=== PATIENT | male | born 1985 | race Caucasian/White ===

== ENCOUNTER 2018-12-14 22:55 | Emergency (ER) | payer BC, OTHER ==
[~2018-12-14] VITALS: Ht 180.3 cm; Wt 85.9 kg
[2018-12-14 22:57] VITALS: BP 111/72; PULSE 88; RESP 18; Ht 180.3 cm; Wt 85.9 kg
[2018-12-15] MEDS ORDERED: LIDOCAINE/MYLANTA 40 ML BTL PO STA (00:29)
[2018-12-15] MEDS ORDERED: SOD CHLORIDE 0.9% 1,000 ML IV STA (00:29)
[2018-12-15] MEDS ORDERED: ONDANSETRON 4 MG INJ IV STA ×2 (00:29→01:40)
[2018-12-15] MEDS ORDERED: ONDA4TAB14 PO (01:39)
[2018-12-15] MEDS ORDERED: FAMO-96 PO (01:39)
--- NOTE | 2018-12-15 04:13 | ERD ---
ER Documentation Chief Complaint Chief Complaint BIBRA fro home,epigastric burning pain,NV,diarrhea started today HPI This is a 33-year-old male presents with sudden onset epigastric abdominal pain associated with nausea, vomiting, diarrhea times today. Patient states he is unable to tolerate food at home. He reports multiple episodes of nonbloody, nonbloody emesis. Denies any blood in his stools as well. He denies any fevers . He states his epigastric pain is burning and radiates towards his esophagus. Denies any associated chest pain, palpitations, shortness of breath, or any other symptoms. Patient states his has similar symptoms a few days earlier. ROS All systems reviewed and are negative except as per history of present illness. Medications Home Meds Active Scripts Famotidine* (Pepcid*) 20 Mg Tablet, 20 MG PO BID for 4 Days, TAB Prov:REJI HILLMAN-C 12/15/18 Ondansetron (Ondansetron Odt) 4 Mg Tab.rapdis, 4 MG PO Q6H PRN for NAUSEA AND/OR VOMITING, #10 TAB Prov:REJI HILLMAN-C 12/15/18 Allergies Allergies: Coded Allergies: No Known Allergy (Unverified , 12/14/18) PMhx/Soc Medical and Surgical Hx: pt denies Medical Hx, pt denies Surgical Hx Hx Alcohol Use: Yes Hx Substance Use: No Hx Tobacco Use: Yes Smoking Status: Current some day smoker Physical Exam Vitals Vital Signs Date Temp Pulse Resp B/P (MAP) Pulse Ox O2 O2 Flow FiO2 Time Delivery Rate 12/14/18 97.1 88 18 111/72 98 22:57 (85) Physical Exam Const: No acute distress. Patient lying comfortably in rney. Head: Atraumatic Eyes: Normal Conjunctiva ENT: Normal External Ears, Nose and Mouth. Neck: Full range of motion. No meningismus. Resp: Clear to auscultation bilaterally Cardio: Regular rate and rhythm, no murmurs Abd: Soft, + mild epigastric tenderness to palpation. Negative Catalan sign. Negative McBurney's tenderness to palpation. No rebound no guarding. No distention. Bowel sounds active in all 4 quadrants. Skin: No petechiae or rashes Back: No midline or flank tenderness Ext: No cyanosis, or edema Neur: Awake and alert Psych: Normal Mood and Affect Result Diagram: 12/15/18 0055 12/15/18 0055 Results 24 hrs Laboratory Tests Test 12/15/18 00:55 White Blood Count 18.1 10^3/ul Red Blood Count 5.64 10^6/ul Hemoglobin 17.1 g/dl Hematocrit 49.6 % Mean Corpuscular Volume 87.9 fl Mean Corpuscular Hemoglobin 30.3 pg Mean Corpuscular Hemoglobin Concent 34.5 g/dl Red Cell Distribution Width 12.3 % Platelet Count 242 10^3/UL Mean Platelet Volume 10.4 fl Immature Granulocytes % 0.600 % Neutrophils % 87.7 % Lymphocytes % 3.8 % Monocytes % 7.2 % Eosinophils % 0.3 % Basophils % 0.4 % Nucleated Red Blood Cells % 0.0 /100WBC Immature Granulocytes # 0.100 10^3/ul Neutrophils # 15.9 10^3/ul Lymphocytes # 0.7 10^3/ul Monocytes # 1.3 10^3/ul Eosinophils # 0.1 10^3/ul Basophils # 0.1 10^3/ul Nucleated Red Blood Cells # 0.0 10^3/ul Sodium Level 142 mmol/L Potassium Level 4.7 mmol/L Chloride Level 99 mmol/L Carbon Dioxide Level 27 mmol/L Anion Gap 16 Blood Urea Nitrogen 17 mg/dl Creatinine 0.88 mg/dl Est Glomerular Filtrat Rate mL/min > 60 mL/min Glucose Level 127 mg/dl Calcium Level 10.1 mg/dl Total Bilirubin 0.7 mg/dl Direct Bilirubin 0.00 mg/dl Indirect Bilirubin 0.7 mg/dl Aspartate Amino Transf (AST/SGOT) 26 IU/L Alanine Aminotransferase (ALT/SGPT) 36 IU/L Alkaline Phosphatase 70 IU/L Total Protein 9.0 g/dl Albumin 5.5 g/dl Globulin 3.50 g/dl Albumin/Globulin Ratio 1.57 Lipase 58 U/L Current Medications Medications Dose Sig/Hugo Start Time Status Last (Trade) Ordered Route PRN Stop Time Admin Dose Reason Admin Sodium 1,000 ml @ Q1H STAT 12/15/18 DC 12/15/18 Chloride 1,000 mls/hr IV 00:29 00:59 12/15/18 01:28 Ondansetron 4 mg ONCE STAT 12/15/18 DC 12/15/18 HCl (Zofran IV 00:29 01:00 Inj) 12/15/18 00:30 40 ml ONCE STAT 12/15/18 DC 12/15/18 Miscellaneous PO 00:29 00:59 Medication 12/15/18 00:30 (Gi Cocktail (2)) Ondansetron 2 mg ONCE STAT 12/15/18 DC 12/15/18 HCl (Zofran IV 01:40 01:52 Inj) 12/15/18 01:41 Procedures/MDM LABS & DIAGNOSTIC IMAGING: CBC: WBC of 18.1, likely stress reaction. CMP: no e/o severe acidosis, alkalosis, renal failure, diabetic ketoacidosi s, liver disease Lipase: No evidence of pancreatitis ED COURSE: The patient was given IV fluids, Zofran, GI cocktail The medication was well tolerated and the patient had market improvement in symp toms. The patient remained stable throughout ED course. MEDICAL DECISION MAKING: Is a 33-year-old male presents with epigastric pain, nausea vomiting and diarrhea. He has no fever here. Vital signs are normal. Abdominal exam is non-concerning for peritonitis. He was given IV fluids, Zofran, GI cocktail with significant improvement of his pain. Patient has leukocytosis on labs, likely a stress reaction from his recent vomiting and diarrhea. Remaining blood work as above is unremarkable. Symptoms are likely secondary to gastroenteritis versus GERD versus gastritis. I have low suspicion for appendicitis, diverticulitis, cholecystitis, nephrolithiasis or any other emergent pathology. Patient felt much better and wanted to go home. His provide a copy of all of his results. He was given Rx Zofran and a trial of Pepcid. I recommended diet modification. He was told to follow-up with his regular doctor in 2 days, otherwise return here for any new or worsening symptoms. PRESCRIPTIONS: Pepcid, Zofran SPECIALIST FOLLOW UP RECOMMENDED: None Patient has been advised to follow up with primary care in 1-2 days. Departure Diagnosis: Primary Impression: Epigastric pain Additional Impression: Vomiting and diarrhea Condition: Stable Patient Instructions: Gerd (Adult), Gastroenteritis, Viral (6Y-Adult) Additional Instructions: Stay away from any spicy or acidic foods. Take the antinausea medication as needed. Drink lots of water and keep yourself hydrated over the next 3 days. See your regular doctor in 2 days, otherwise return here for any new or worsening symptoms. REJI HILLMAN PA-C Dec 15, 2018 04:13
== END 2018-12-15 02:10 | disposition home or self-care (01) ==
LOC: FTE 22:55
DX: R10.13 Epigastric pain (principal); R11.2 Nausea with vomiting, unspecified; F17.210 Nicotine dependence, cigarettes, uncomplicated; R19.7 Diarrhea, unspecified
CPT/HCPCS: 36415; 80053; 83690; 85025; 96361; 96374; 96376; 99284; J2405; J7030